=== PATIENT | male | born 1930 | race Caucasian/White ===

== ENCOUNTER → 2016-08-01 | Outpatient (CLI) | payer MEDICARE, OTHER | LOC: LAB.O 16:40 | PROVIDERS: ATTEND Family Medicine | DX: Z85.46 Personal history of malignant neoplasm of prostate (principal) ==

== ENCOUNTER → 2016-10-10 | Outpatient (CLI) | payer MEDICARE, OTHER | END | disposition home or self-care (01) | LOC: GMAB 16:31 | PROVIDERS: ATTEND Family Medicine | DX: R53.82 Chronic fatigue, unspecified (principal) ==

== ENCOUNTER → 2017-03-12 | Outpatient (CLI) | payer MEDICARE, OTHER | END | disposition home or self-care (01) | LOC: GMAB 10:17 | PROVIDERS: ATTEND Family Medicine | DX: Z12.5 Encounter for screening for malignant neoplasm of prostate (principal); E03.9 Hypothyroidism, unspecified | CPT/HCPCS: 84439; 84443; 84481; G0103 ==

== ENCOUNTER → 2017-09-29 | Outpatient (CLI) | payer MEDICARE, OTHER | LOC: GMAB 18:23 | PROVIDERS: ATTEND Family Medicine | DX: C61 Malignant neoplasm of prostate (principal) ==

== ENCOUNTER → 2017-10-01 | Outpatient (CLI) | payer MEDICARE, OTHER ==
--- NOTE | 2017-10-01 11:31 | MRI ---
EXAM DESCRIPTION: Lumbar Spine w/o Contrast : Magnetic Resonance Imaging. CLINICAL HISTORY: LOW BACK PAIN COMPARISON: MRI lumbar spine 07/03/2009. TECHNIQUE: Multiplanar, multiple standard sequences, non contrast MRI, lumbar spine. FINDINGS: L5-S1: Moderate disc space loss with bilateral Modic type II endplate reactive changes more severe on the left. Disc osteophyte complex with borderline left foraminal stenosis. Moderate right foraminal narrowing. Posterior midline disc osteophyte bulge 3 mm abutting the thecal sac with mild canal narrowing. Bilateral facet arthrosis. No significant change from the prior study. L4-5: Disc desiccation and moderate disc space loss. Anterior bulging and endplate ridging. Modic type I endplate reactive changes. Posterior left paracentral 5 mm disc osteophyte complex protrusion to the left of midline impressing the thecal sac and the descending left L5 nerve as it enters the lateral recess which is borderline stenotic. Mild bilateral facet arthrosis and mild ligament hypertrophy. Mild left foraminal stenosis and moderate right foraminal narrowing. Stable since the prior study. L3-4: Moderate disc space loss and disc desiccation. Anterior disc bulge and endplate ridging. Right side Modic type III endplate reactive changes and disc spur complex encroaching on the foramen which is stenotic. Mild to moderate left foraminal narrowing. Minimal ligament hypertrophy bilaterally and right facet arthrosis. Stable since the prior study. L2-3: Modic type II endplate reactive changes with multiple endplate Schmorl's nodes. Moderate disc space loss and desiccation. Anterior disc bulge and endplate ridging. Posterior broad-based disc bulge more to the left of midline. Hypertrophied ligaments and bilateral mild facet arthrosis. Mild canal stenosis. Moderate right foraminal narrowing and borderline left foraminal stenosis. Stable since the prior study. L1-2: Disc desiccation with disc space preserved. Bilateral flavum ligament hypertrophy. Facets are negative. Mild canal and bilateral foraminal narrowing. Stable. T12-L1: Moderate disc space loss with desiccation anterior bulging and endplate ridging. Conus terminates at L1. Trace retrolisthesis with posterior disc osteophyte complex abutting the cord. Modic type II endplate reactive changes more severe on the left with disc osteophyte complex encroaching on the foramen which is stenotic. Moderate right foraminal narrowing. Stable since the prior study. Left L2 L5 convex curvature. T12-L1 dextroscoliosis. Normal signal in the included cord with no compression. Paravertebral soft tissues show muscle atrophy.. Normal marrow signal in the remaining vertebral bodies and the posterior elements. Vertebral bodies are not compressed at any level. IMPRESSION: 1. Multiple levels of spondylosis, disc degeneration and disc space loss, endplate spurs, facet arthrosis and spurs, flavum ligament hypertrophy and canal and foraminal narrowing or stenosis. No significant change since the prior study. 2. Left side disc osteophyte complex at L5-S1 with borderline foraminal stenosis. Posterior midline disc bulge. 3. Posterior left paracentral disc osteophyte complex at L4-5 encroaching on the left thecal sac and the descending left L5 nerve and left subarticular recess. 4. L3-4 Right side advanced Modic type changes and spondylosis with right foraminal stenosis. 5. Multifactorial mild canal stenosis at L2-3 with moderate spondylosis. 6. Left side disc osteophyte complex at T12-L1 with left foraminal stenosis. Trace retrolisthesis. Posterior midline disc osteophyte complex abutting the cord. Electronically signed by: Ezequiel Mclean MD 10/01/2017 11:30 AM CDT
== END ==
LOC: MRI 08:00
PROVIDERS: ATTEND Physician Assistant
DX: M48.061 Spinal stenosis, lumbar region without neurogenic claudication (principal); M47.896 Other spondylosis, lumbar region; M51.36 Other intervertebral disc degeneration, lumbar region; M54.5 Low back pain

== ENCOUNTER 2017-12-28 18:42 | Observation (INO) | payer MEDICARE, OTHER ==
--- NOTE | 2017-12-28 19:28 | RAD ---
EXAM DESCRIPTION: Chest,1 View CLINICAL HISTORY: chest pain COMPARISON: None. FINDINGS: Cardiac silhouette is within normal limits. There is atelectasis and consolidation at each lung base. There is mild pulmonary edema. Prosthetic right shoulder appears intact. There is a small right pleural effusion. IMPRESSION: Bilateral consolidations. Electronically signed by: Ezequiel Rodgers 12/28/2017 7:26 PM CDT
[2017-12-28] MEDS ORDERED: IPRATROPIUM/ALBUTEROL 3 ML VIAL NEB ONE (19:37)
--- NOTE | 2017-12-28 20:16 | ED.PDOC ---
History of Present Illness - General Chief Complaint: Respiratory Problem Stated Complaint: short of breath Time Seen by Provider: 12/28/17 19:11 Source: patient Exam Limitations: no limitations - History of Present Illness Comments: Trinidad Coburn 87 y/o male stated that he has on and off productive cough for the last 4 months got worse the last 5 days and also with sob.No fever or chills. 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 Timing/Duration: other - see hpi Possible Cause: occasional episodes, unknown cause Worsening Factors: nothing Associated Symptoms: shortness of breath Respiratory Risk Factors: no cause identified Allergies/Adverse Reactions: Allergies Polyethylene Glycol [From MiraLax] Adverse Reaction (Verified 01/27/16 13:22) Rash Home Medications: Ambulatory Orders Clonazepam 1 mg PO DAILY 01/27/16 Duloxetine HCl [Cymbalta] 60 mg PO DAILY 01/27/16 Furosemide [Lasix] 40 mg PO DAILY 01/27/16 Levothyroxine Sodium [Synthroid] 0.05 mg PO DAILY 01/27/16 Pantoprazole Sodium 40 mg PO DAILY 01/27/16 Potassium Chloride 1 each PO DAILY 01/27/16 Tramadol HCl [Ultram] 50 mg PO QID PRN 01/27/16 Aripiprazole [Abilify] 12/28/17 Review of Systems - Review of Systems Constitutional: States: no symptoms reported EENTM: States: no symptoms reported Respiratory: States: see HPI Cardiology: States: no symptoms reported Gastrointestinal/Abdominal: States: no symptoms reported Genitourinary: States: no symptoms reported Musculoskeletal: States: no symptoms reported Skin: States: no symptoms reported Neurological: States: other - vertigo chronic Past Medical History (General) - Patient Medical History Hx Stroke: No Hx Congestive Heart Failure: No Hx Thyroid Disease: Yes Hx Diabetes: No Hx Gastroesophageal Reflux: Yes Hx Cancer: Yes - Prostate; skin Hx MRSA: No Hx Other PMH: Yes - Rheumatoid arthritis Surgical History: appendectomy, 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 Family Medical History - Family History Father Living Status: Hx Family Diabetes: Yes - mom Hx Family Cancer: Yes - brother prostate Hx Family;Other: Alzheimer's Physical Exam - Physical Exam General Appearance: Alert, Comfortable, No apparent distress Eye Exam: bilateral normal ENT Exam: normal ENT inspection, hearing grossly normal Neck: normal inspection, trachea midline Respiratory: chest non-tender, no respiratory distress, rales - bases Cardiovascular/Chest: normal peripheral pulses, regular rate, rhythm, no murmur Gastrointestinal/Abdominal: non tender, soft, no organomegaly Extremity: no calf tenderness, pedal edema - 1+, other - deformity finger r>l Neurologic: alert, oriented x 3 Skin Exam: normal color, warm/dry Lymphatic: no adenopathy Progress - Progress Progress: 12/28/17 22:38 Vital Signs - 8 hr 12/28/17 12/28/17 12/28/17 19:11 19:36 19:47 Temperature 97.1 F L Pulse Rate 71 Pulse Rate [ 76 68 Right] Respiratory 20 18 18 Rate Blood Pressure 137/70 144/67 [Left Arm] O2 Sat by Pulse 93 L 94 L 98 Oximetry 12/28/17 12/28/17 19:49 21:00 Temperature Pulse Rate Pulse Rate [ 76 75 Right] Respiratory 18 18 Rate Blood Pressure 147/66 135/66 [Left Arm] O2 Sat by Pulse 94 L 97 Oximetry - Results/Orders Results/Orders: Vital Signs - 8 hr 12/28/17 12/28/17 12/28/17 19:11 19:36 19:47 Temperature 97.1 F L Pulse Rate 71 Pulse Rate [ 76 68 Right] Respiratory 20 18 18 Rate Blood Pressure 137/70 144/67 [Left Arm] O2 Sat by Pulse 93 L 94 L 98 Oximetry 12/28/17 12/28/17 19:49 21:00 Temperature Pulse Rate Pulse Rate [ 76 75 Right] Respiratory 18 18 Rate Blood Pressure 147/66 135/66 [Left Arm] O2 Sat by Pulse 94 L 97 Oximetry 12/28/17 19:13 IV Care:Saline Lock per Protoc QSHIFT URINALYSIS Stat 12/28/17 19:15 EKG STAT EKG STAT Laboratory Results - last 24 hr 12/28/17 12/28/17 19:13 19:13 WBC 10.1 RBC 4.69 L Hgb 14.6 Hct 43.4 MCV 92.5 MCH 31.1 H MCHC 33.5 RDW 14.1 Plt Count 283 MPV 7.7 Absolute Neuts (auto) 6.70 Absolute Lymphs (auto) 2.00 Absolute Monos (auto) 1.10 H Absolute Eos (auto) 0.30 Absolute Basos (auto) 0.10 Neutrophils % 66.6 Lymphocytes % 19.6 L Monocytes % 10.5 H Eosinophils % 2.5 Basophils % 0.8 PT 10.2 INR 1.02 PTT (SP) 24.1 D-Dimer, Quantitative 2.17 H* Sodium 138 Potassium 3.9 Chloride 106 Carbon Dioxide 23 Anion Gap 12.9 BUN 16 Creatinine 1.10 BUN/Creatinine Ratio 14.5 Random Glucose 127 H Serum Osmolality 278.4 Calcium 9.1 Magnesium 2.1 Total Bilirubin 0.6 Direct Bilirubin < 0.1 Indirect Bilirubin 0.5 AST 28 ALT 22 Alkaline Phosphatase 65 Creatine Kinase 58 CK-MB (CK-2) 2.4 CK-MB (CK-2) % Not Reportable Troponin I 0.03 B-Natriuretic Peptide 303.0 H* Serum Total Protein 7.3 Albumin 3.9 - EKG/XRAY/CT EKG: Sinus, nonspecific ST T wave Chg Comments: HR-72 XRAY: facial bones - HR- CT Ordered: Yes - [id number] pe;diffuse pulmonary congestion Departure - Departure Clinical Impression: History of juvenile rheumatoid arthritis Pneumonia Qualifiers: Pneumonia type: due to unspecified organism Laterality: bilateral Lung location : lower lobe of lung Qualified Code(s): J18.1 - Lobar pneumonia, unspecified organism Time of Disposition: 23:01 Disposition: Admit Patient Condition: Fair Departure Forms: Patient Portal Self Enrollment Referrals: Chico Pino MD [Primary Care Provider] - 1-2 Weeks Home Medications: Ambulatory Orders Clonazepam 1 mg PO DAILY 01/27/16 Duloxetine HCl [Cymbalta] 60 mg PO DAILY 01/27/16 Furosemide [Lasix] 40 mg PO DAILY 01/27/16 Levothyroxine Sodium [Synthroid] 0.05 mg PO DAILY 01/27/16 Pantoprazole Sodium 40 mg PO DAILY 01/27/16 Potassium Chloride 1 each PO DAILY 01/27/16 Tramadol HCl [Ultram] 50 mg PO QID PRN 01/27/16 Aripiprazole [Abilify] 12/28/17 Decision To Admit - Decistion To Admit Decision to Admit Reason: Admit from ER Decision to Admit Date: 12/28/17 - D/W Kassidy [id number] Decision to Admit Time: 22:57
--- NOTE | 2017-12-28 22:32 | CT ---
EXAM: CT ANGIOGRAM OF THE CHEST USING INTRAVENOUS ADMINISTRATION OF NONIONIC IODINATED CONTRAST MATERIAL. CLINICAL INDICATION: Evidence of breath. Elevated d-dimer. COMPARISON: Today's chest radiograph. Chest CT of September 05, 2017. TECHNIQUE: Using helical technique, thin section axial images were performed through the chest after the uncomplicated intravenous administration of nonionic iodinated contrast material. Axially acquired data was then transferred to a dedicated CT workstation to facilitate parasagittal, coronal and volumetric 3-D reconstructions. Vice President Of [employer] volumetric 3-D reconstructions for this examination were permanently stored on the PACS system. FINDINGS: Mild to moderate atherosclerotic calcification of thoracic aorta without aneurysm or dissection. Great vessels the chest are normal. No pulmonary embolism. Greatest diameter of the ascending thoracic aorta equals 3.1 cm. No suspicious hilar, mediastinal or axillary lymphadenopathy. Cardiac size and contour are normal. No pericardial effusion. Partially visualized three-vessel coronary artery calcification. Fine detail is obscured by cardiac motion artifact. Suspect diffuse pulmonary congestion dependently in both lungs. No pleural effusions or pneumothorax. No regions of pleural calcification. Multilevel degenerative disease throughout the thoracic spine. IMPRESSION: 1. No pulmonary embolism. 2. Suspect diffuse dependent pulmonary congestion in both lungs. No pleural effusions or pneumothorax. 3. Atherosclerotic calcification of thoracic aorta without aneurysm or dissection. 4. Partially visualized coronary artery calcification. This exam was performed according to our departmental dose-optimization program, which includes automated exposure control, adjustment of the mA and/or kV according to patient size and/or use of iterative reconstruction technique. Electronically signed by: Raymundo Rai MD 12/28/2017 10:30 PM CDT
[2017-12-28] MEDS ORDERED: AZITHROMYCIN IV 500 MG in SODIUM CHLORIDE 0.9% 250ML 250 ML IVPB ONE (22:59)
[2017-12-28] MEDS ORDERED: cefTRIAXone SODIUM 2 GM in SODIUM CHL 0.9% 100ML MINI-BAG 100 ML IVPB ONE (22:59)
[2017-12-28] MEDS ORDERED: methylPREDNISolone SODIUM SUC 125 MG/2 ML VIAL IV ONE (23:00)
[2017-12-28] MEDS ORDERED: SODIUM CHLORIDE 0.9% 250ML 250 ML ONE (23:15)
[2017-12-28] MEDS ORDERED: SODIUM CHL 0.9% 100ML MINI-BAG 100 ML IVPB ONE (23:15)
[2017-12-28] MEDS ORDERED: AZITHROMYCIN IV 500 MG VIAL IVPB ONE (23:15)
--- NOTE | 2017-12-28 23:59 | HP ---
SUPERVISING PHYSICIAN: Rush Barahona M.D. HISTORY OF PRESENT ILLNESS: Mr. Coburn is an 87 year-old male patient that presented to the Emergency Room late last night with a complaint of sudden onset of shortness of breath. He noted that he has been having a cough which has been chronic over the last 4 months which is productive at times. He noted that yesterday afternoon he was walking in his house and had an episode of significant shortness of breath. He normally uses an inhaler but he has not had any refills since Dr. Pino, his primary care provider, had retired. On presentation to the Emergency Department, vital signs showed he was afebrile with temperature 97.1, satting 90% on room air. He was obviously having some shortness of breath with respirations 20 to 22. Laboratory studies showed that his white count was showing to normal at 10,100 without a left shift. Coagulation studies showed he had an elevated D-dimer of 2.17. Chemistries were unremarkable except for an elevated BNP of 303. Given the elevation of his D-dimer and onset of symptoms, he had a chest CTA to rule out pulmonary embolism and per radiology interpretation there was noted no pulmonary embolism. There was noted suspected diffuse dependent pulmonary congestion in both lungs. In the E. R., he was given a dose of Solu-Medrol 125 and started on antibiotics including Rocephin and azithromycin. He is now going to be placed in observation for concerns for acute exacerbation of congestive heart failure and chronic obstructive pulmonary disease with concerns for possible community acquired pneumonia. He was placed in observation for further evaluation and workup of shortness of breath and concerns for possible congestive heart failure given his elevated BNP and concerns for possible pneumonia, community acquired. PAST MEDICAL HISTORY: 1. Gastroesophageal reflux disease. 2. Tension headaches. 3. Prostate cancer. 4. Anxiety and mild depression. 5. Rheumatoid arthritis not on any chronic treatment. 6. History of rheumatic fever as a child. 7. Hypothyroidism on supplementation. 8. Chronic constipation. 9. Chronic vertigo. 10. Chronic cough with chronic bronchitis. PAST SURGICAL HISTORY: 1. Back injections. 2. Implanted event clinical research monitor. HOME MEDICATIONS: 1. Metoprolol 25 mg daily. 2. Abilify 5 mg daily. 3. Potassium chloride 20 mEq daily. 4. Linzess 290 mcg daily. 5. Clonazepam 1 mg daily. 6. Pantoprazole 40 mg daily. 7. Cymbalta 60 mg daily. 8. Synthroid 0.05 mg daily. 9. Lasix 40 mg daily. ALLERGIES: NO KNOWN DRUG ALLERGIES. FAMILY HISTORY: Positive for carcinoma of the prostate in a brother as well as heart failure. SOCIAL HISTORY: The patient has never smoked. 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 He lives in [place] and is . He denies any alcohol or illicit drug use. REVIEW OF SYSTEMS: CONSTITUTIONAL: No reported fever or chills. HEENT: No nasal congestion, ear aches, sore throat. RESPIRATORY: As noted in History of Present Illness, chronic cough, sudden onset of shortness of breath. CARDIOVASCULAR: No reported chest pains or syncopal episodes or palpitations. GASTROINTESTINAL: Denies any nausea or vomiting, diarrhea. Does have chronic constipation on Linzess. Denies any abdominal pains. GENITOURINARY: History of prostate cancer but denies any dysuria, hematuria, polyuria or other urinary symptoms. NEUROLOGIC: Notes he has chronic vertigo that has worsened with dehydration but denies any worsening of symptoms currently. No ataxia. No seizure activities. PHYSICAL EXAMINATION: VITAL SIGNS: Temperature 97.1, pulse 76, blood pressure 137/70, respirations showing 20 to 24 with O2 saturations 98% on room air. Admission weight 71.7 kg. GENERAL: On admission to the Medical/Surgical floor, the patient appears comfortable, resting, sitting on the side of the bed and appears to be in no acute distress with no complaints at time of assessment. HEENT: Tympanic membranes were clear bilaterally. Oropharynx was pink and moist without any lesions. NECK: Supple, non-tender with full range of motion. No jugular venous distention. CHEST: Lungs were clear with some faint rales noted to the bilateral bases. No wheezing or rhonchi. CARDIOVASCULAR: Regular rate and rhythm without appreciable murmurs, gallops, or rubs. ABDOMEN: Obese but soft, non-tender. Positive bowel sounds. EXTREMITIES: Did show 1+ edema bilaterally. There is notable deformities to the fingers on both hands, but right greater than left secondary to rheumatoid arthritis. NEUROLOGIC: He is alert and oriented times three. Facial features are symmetrical. Extraocular movements are within normal limits. There was no notable nystagmus. Cranial nerves II-XII are grossly intact. LABORATORY: CBC initially showed a white count of 10,100 with hemoglobin 14.6, hematocrit 43.4, platelet count 283,000. Differential showed to be without a left shift. Coagulation studies showed an elevated D-dimer at 2.7 with PTT of 24.1, PT of 10.2. Initial chemistries all showed to be within normal limits except for a slightly elevated BNP of 303. Cardiac enzymes showed troponin 0.03. Urinalysis showed to be within normal limits. MICROBIOLOGY: Sputum culture is pending. Blood culture is pending. RADIOLOGY: Chest x-ray initially in the E. R. per radiology interpretation of single view chest showed cardiac silhouette was within normal limits. There was note of mild pulmonary edema with notable bilateral consolidations. This was followed-up with a chest thoracic CTA and per radiology interpretation showed no evidence of pulmonary embolism on current study with suspected diffuse dependent pulmonary congestion in both lungs, but no pleural effusions or pneumothoraxes. EKG 12-leas in the E. R. showed sinus rhythm with nonspecific ST wave changes. ASSESSMENT: 1. Acute dyspnea with concerns for developing community acquired pneumonia with history of chronic bronchitis with current pulmonary embolism studies showing without any evidence of acute pulmonary embolism. 2. Acute on chronic congestive heart failure, although no formal diagnosis of congestive heart failure with a noted elevated BNP on admission with last echocardiogram noted in 2011 with a mild left ventricular hypertrophy and an ejection fraction of 55% with radiographic studies indicating bilateral pulmonary congestion. 3. Gastroesophageal reflux disease. 4. History of tension headaches. 5. History of prostate cancer. 6. Hypothyroidism on supplementation. 7. Depression on Abilify. 8. Rheumatoid arthritis. 9. History of rheumatic fever as a child. 10. Chronic constipation on Linzess. PLAN: The patient was given antibiotics initially in the E. R. with concerns for pneumonia based off initial findings on chest x-ray. Will follow this up with continued antibiotics with Rocephin and azithromycin. He will also be given Lasix 40 mg IV with concerns for exacerbation of congestive heart failure. He will be on DVT prophylaxis as per protocol. Will resume his home medications as those are updated and verified. Will go ahead and start him on aggressive pulmonary hygiene with DuoNeb treatments and p.r.n. Albuterol as needed. he will be on fluid restriction of less than 1800 mL per 24 hours. Will closely monitor his I's and O's and repeat labs in the morning with anticipation of discharging to followup in the outpatient setting. Until then continue to monitor and treat appropriately. #[id number] [facility]
[2017-12-29] MEDS ORDERED: ALBUTEROL SULFATE 2.5 MG/3 ML VIAL NEB PRN (00:20)
[2017-12-29] MEDS ORDERED: IV SET AND CAP CHANGE INJ INJ SCH (00:30)
[2017-12-29] MEDS: SODIUM CHLORIDE 0.9% (FLUSH) 10 ML SYG IV PRN ×5 (05:57→23:55)
[2017-12-29] MEDS: methylPREDNISolone SODIUM SUC 125 MG/2 ML VIAL IV SCH ×4 (05:58→23:57)
[2017-12-29] MEDS ORDERED: PANTOPRAZOLE SODIUM IV 40 MG VIAL IV SCH (06:30)
--- NOTE | 2017-12-29 07:00 | RAD ---
Chest single view on 12/29/2017 CLINICAL INDICATION: Pneumonia COMPARISON: 12/28/2017 FINDINGS: Implantable cardiac recorder device overlies the left chest. The patient is status post a right shoulder arthroplasty. A few overlying wires are noted. There is minimal basilar atelectasis or scarring. Mild chronic interstitial changes are noted. The lungs are otherwise clear. Vascular calcification is noted in the aorta. Cardiac, hilar and mediastinal contours are within normal limits. IMPRESSION: No acute disease. Electronically signed by: Griffin Hylton 12/29/2017 6:58 AM CDT
[2017-12-29] MEDS: IPRATROPIUM/ALBUTEROL 3 ML VIAL INH SCH ×4 (08:51→20:46)
[2017-12-29] MEDS: SODIUM CHLORIDE 0.9% (FLUSH) 10 ML SYG IV SCH ×2 (08:56→20:38)
[2017-12-29] MEDS ORDERED: FUROSEMIDE INJ 40 MG/4 ML VIAL IV ONE (10:50)
[2017-12-29] MEDS ORDERED: NON-FORMULARY MEDICATION 1 EA MIS (Linaclotide [Linzess] 290 MCG) PO SCH (16:30)
[2017-12-29] MEDS: ARIPiprazole 5 MG TAB PO SCH (17:23)
[2017-12-29] MEDS: METOPROLOL SUCCINATE XL 25 MG TAB PO SCH (17:24)
[2017-12-29] MEDS ORDERED: SODIUM CHLORIDE 0.9% 250ML 250 ML ONE (19:42)
[2017-12-29] MEDS ORDERED: SODIUM CHL 0.9% 50ML MIN-BAG+ 50 ML IVPB ONE (19:43)
[2017-12-29] MEDS ORDERED: cefTRIAXone SODIUM 1 GM VIAL ONE (19:43)
[2017-12-29] MEDS ORDERED: AZITHROMYCIN IV 500 MG VIAL IVPB ONE (19:43)
[2017-12-29] MEDS ORDERED: ENOXAPARIN SODIUM 40 MG/0.4 ML SYG SUBCU SCH (21:00)
[2017-12-29] MEDS ORDERED: DULoxetine HCL 30 MG CAP PO SCH (21:00)
[2017-12-29] MEDS ORDERED: cefTRIAXone SODIUM 1 GM in SODIUM CHL 0.9% 50ML MIN-BAG+ 50 ML IVPB SCH (21:00)
[2017-12-29] MEDS ORDERED: AZITHROMYCIN IV 500 MG in SODIUM CHLORIDE 0.9% 250ML 250 ML IVPB SCH (22:00)
[2017-12-30] MEDS ORDERED: PANTOPRAZOLE SODIUM IV 40 MG VIAL ONE (05:41)
[2017-12-30] MEDS: methylPREDNISolone SODIUM SUC 125 MG/2 ML VIAL IV SCH (05:52)
[2017-12-30] MEDS: SODIUM CHLORIDE 0.9% (FLUSH) 10 ML SYG IV PRN (05:52)
[2017-12-30] MEDS ORDERED: LEVOTHYROXINE SODIUM 0.025 MG TAB PO SCH (06:30)
[2017-12-30] MEDS ORDERED: LINZESS 290 MCG PO SCH (07:00)
[2017-12-30] MEDS: IPRATROPIUM/ALBUTEROL 3 ML VIAL INH SCH (08:11)
[2017-12-30] MEDS ORDERED: PANTOPRAZOLE SODIUM TAB 40 MG PO SCH (09:00)
[2017-12-30] MEDS ORDERED: FUROSEMIDE 40 MG TAB PO SCH (09:00)
[2017-12-30] MEDS ORDERED: POTASSIUM CHLORIDE 10 MEQ TAB PO SCH (09:00)
[2017-12-30] MEDS: METOPROLOL SUCCINATE XL 25 MG TAB PO SCH (09:12)
[2017-12-30] MEDS: ARIPiprazole 5 MG TAB PO SCH (09:12)
[2017-12-30] MEDS: SODIUM CHLORIDE 0.9% (FLUSH) 10 ML SYG IV SCH (09:12)
[2017-12-30 11:31] VITALS: BP 125/69; TEMP 97.7; O2SAT 95
--- NOTE | 2018-01-05 10:22 | DS ---
SUPERVISING PHYSICIAN: Jarrett Barahona MD ADMISSION DIAGNOSIS; 1. Acute dyspnea with concerns for developing community acquired pneumonia with history of chronic bronchitis with pulmonary embolism studies by CTA without any evidence of acute pulmonary embolism. 2. Acute on chronic congestive heart failure with no formal diagnosis of congestive heart failure, but with a noted elevated BNP on admission with last echocardiogram in 2012 with a mild left ventricular hypertrophy and an ejection fraction of 55% with radiographic studies indicating bilateral pulmonary congestion. 3. Gastroesophageal reflux disease. 4. History of tension headaches. 5. History of prostate cancer. 6. Hypothyroidism on supplementation. 7. Depression on Abilify. 8. Rheumatoid arthritis. 9. History of rheumatic fever as a child. 10. Chronic constipation on Linzess. DISCHARGE DIAGNOSIS: 1. Exacerbation of chronic bronchitis, improving with antibiotics and aggressive pulmonary hygiene without any signs of pneumonia at discharge. 2. Acute on chronic congestive heart failure with an elevated BNP on admission , exacerbated by #1 with echocardiogram in 2012 showing a mild left ventricular hypertrophy and an ejection fraction of 55%. Type is likely systolic etiology, uncertain, but more likely secondary to left ventricular hypertrophy. 3. Gastroesophageal reflux disease. 4. History of tension headaches. 5. History of prostate cancer. 6. Hypothyroidism on supplementation. 7. Depression on Abilify. 8. Rheumatoid arthritis. 9. History of rheumatic fever as a child. 10. Chronic constipation on Linzess. REASON FOR HOSPITALIZATION: Mr. Coburn is an 87-year-old male patient that presented to the Emergency Room on 12/28/17 with a complaint of sudden onset of shortness of breath. He first noted that he has been having a cough which has been chronic over the last 4 months which is productive at times. He noted that the afternoon before admission, he was walking in his house and had an episode of significant shortness of breath. He normally uses an inhaler but he has not had any refills since Dr. Pino, his primary care provider, had retired. On presentation to the Emergency Department, vital signs showed he was afebrile with temperature 97.1, satting 90% on room air. He was obviously having some shortness of breath with respirations 20 to 22. He was given breathing treatments with improvement of his symptoms. Laboratory studies showed that his white count was showing to normal without a left shift. D-dimer was elevated at 2.17. Chemistries were unremarkable except for an elevated BNP of 303. Given the significant elevation of his D-dimer and sudden onset of dyspnea, he had a chest CTA to rule out pulmonary embolism and per radiology interpretation there was noted no pulmonary embolism. There was noted suspected diffuse dependent pulmonary edema in both lungs. In the ER, he was given a dose of Solu-Medrol 125 mg and started on antibiotics including Rocephin and azithromycin. He does have a history of chronic bronchitis and there was concern for possible pneumonia. He was placed in observation for concerns for acute exacerbation of congestive heart failure as well as chronic obstructive pulmonary disease. He was placed in observation for further evaluation and workup. He was admitted in stable condition. LABORATORY: White count on admission and discharge was within normal limits. At discharge, it was 7,900. Hemoglobin and hematocrit were stable at 14.1 and 42.1 respectively. Platelet count 286,000. Differential initially admission was without a left shift. However, after Solu-Medrol administration, he developed a left shift prior to discharge. Coagulation studies showed normal PT , PT-T. D-dimer was elevated at 2.17. Chemistries showed both on admission and at discharge normal electrolytes. BUN 16, creatinine 0.99. Liver functions were all within normal limits. Troponin 0.03 on admission and BNP was elevated at 303. Urinalysis was within normal limits. MICROBIOLOGY: Blood cultures remained negative after 5 days. No sputum culture was submitted. RADIOLOGY: In the Emergency Room, he had a chest x-ray and per radiologic interpretation there was note of bilateral consolidations with some mile pulmonary edema. This was followed up with a CT of the chest and per radiologic interpretation, was no note of pulmonary embolism and there was suspected diffuse dependent pulmonary congestion of both lungs with no mention of consolidations. Please see that report for full details. EKG: EKG on admission showed a normal sinus rhythm with nonspecific ST changes and no acute T-wave inversion or ST elevation indicating acute myocardial infarction at time of admission. HOSPITAL COURSE: Mr. Coburn was admitted on 12/29/17 as noted above for exacerbation of chronic obstructive pulmonary disease along with chronic bronchitis with concerns for community acquired pneumonia developing early stages. He was started on Solu-Medrol initially in the Emergency Room and given aggressive pulmonary hygiene with breathing treatments as well as initiated on antibiotics with Rocephin and azithromycin. He has no recurrence of shortness of breath while in the hospital. He remained afebrile. He was satting 95% on room air and was felt that he had clinically stabilized and was able to transition to outpatient management. Therefore, he was to be discharged. DISCHARGE PHYSICAL ASSESSMENT: VITAL SIGNS: Temperature 97.7. Pulse 97. Blood pressure 125/69. Respirations 18. Saturation 95% on room air. GENERAL: The patient was in no acute distress, resting comfortably, alert. CHEST: Lungs clear to auscultation, just slightly diminished towards the bases. No wheezes, rales or rhonchi noted. HEART: Regular rate and rhythm. ABDOMEN: Obese, but soft, nontender. Positive bowel sounds. EXTREMITIES: No cyanosis, clubbing or edema. NEUROLOGIC: He is alert and oriented times 3. PLAN: MR. Coburn was discharged on 12/30/17 with instructions to followup with Dr. Barahona on 01/13/18 at 13:30. He was to resume his home medications as previously instructed prior to admission. He was to take new prescriptions as directed. He was encouraged to return to the hospital or call Dr. Barahona's office should he have any concerning symptoms. He was to resume his usual diet as tolerated. Activity to ambulate with a walker as tolerated. He was encouraged to increase activities. NEW PRESCRIPTIONS AT DISCHARGE: 1. Albuterol inhaler 1 to 2 puffs every 4 hours as needed. 2. Cefdinir 300 mg twice daily, #16. 3. Mucinex 600 mg twice daily, #14. Condition at discharge was stable and improved. #[id number] [facility]
== END 2017-12-30 11:45 | disposition home or self-care (01) ==
LOC: ER 18:42 → OBSVTOIN 23:58 → MS 23:58 → INTOOBSV 23:58
PROVIDERS: ADMIT Nurse Practitioner Acute Care; ATTEND Nurse Practitioner Family
DX: J44.1 Chronic obstructive pulmonary disease with (acute) exacerbation (principal); I50.9 Heart failure, unspecified; K21.9 Gastro-esophageal reflux disease without esophagitis; G44.209 Tension-type headache, unspecified, not intractable; E03.9 Hypothyroidism, unspecified; F32.9 Major depressive disorder, single episode, unspecified; M06.9 Rheumatoid arthritis, unspecified; K59.09 Other constipation; I70.0 Atherosclerosis of aorta; Z79.899 Other long term (current) drug therapy; Z85.46 Personal history of malignant neoplasm of prostate; Z95.818 Presence of other cardiac implants and grafts; Z82.49 Family history of ischemic heart disease and other diseases of the circulatory system
CPT/HCPCS: 96366; 96372; 96375 ×2; 96376 ×2; J0696 ×2; J1940; J2930 ×6; J7050 ×4; J1650; J0456 ×2; J7620 ×6; 85379; 80053; 36415 ×2; 82550; 80048; 82553; 85025 ×2; 85730; 85610; 84484; 81001; 80076; 87040 ×2; 83880; 71045 ×2; 71275; 94640 ×7; 94667; 94760 ×8; 94668 ×3; 99285; 93005; G0378; 96365; 96367

== ENCOUNTER 2018-01-20 21:26 | Emergency (ER) | payer MEDICARE, OTHER ==
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
--- NOTE | 2018-01-20 22:08 | RAD ---
EXAM: Chest,1 View CLINICAL INDICATION: 87-year-old male with shortness of breath. TECHNIQUE: Single view, AP portable chest was obtained. COMPARISON: Single view chest 12/29/2017. FINDINGS: Stable cardiac and mediastinal silhouette. Heart size is normal. Tortuous atherosclerotic thoracic aorta. Diffuse interstitial and airspace opacification raising the concern for pulmonary vascular congestion, edema. No gross pneumothoraces or large pleural effusion, however trace pleural effusion cannot be excluded. The possibility of infectious process may be considered in the differential. The visualized bones reveal diffuse demineralization, degenerative change and RIGHT shoulder arthroplasty device. IMPRESSION: Diffuse interstitial and airspace opacification raising the concern for pulmonary vascular congestion and edema. Electronically signed by: Jasmin Fleming MD 01/20/2018 10:07 PM CDT
[2018-01-20] MEDS: FUROSEMIDE INJ 40 MG/4 ML VIAL IV ONE (22:30)
[2018-01-20 23:16] VITALS: TEMP 98.1; O2SAT 100
[2018-01-20 23:40] VITALS: BP 122/64
== END 2018-01-20 23:30 | disposition short-term general hospital (02) ==
LOC: ER 21:26
DX: T59.811A Toxic effect of smoke, accidental (unintentional), initial encounter (principal); J68.0 Bronchitis and pneumonitis due to chemicals, gases, fumes and vapors; R09.02 Hypoxemia; E07.9 Disorder of thyroid, unspecified; I50.9 Heart failure, unspecified; K21.9 Gastro-esophageal reflux disease without esophagitis; Z85.46 Personal history of malignant neoplasm of prostate; Z79.899 Other long term (current) drug therapy; Z88.5 Allergy status to narcotic agent
CPT/HCPCS: 36415; 36600; 71045; 80053; 81001; 82803; 82805; 83605; 85025; J1940

== ENCOUNTER → 2018-02-03 | Outpatient (CLI) | payer MEDICARE, OTHER ==
[~2018-02-03] MED LIST: ALBUTEROL SULFATE 2.5 MG/3 ML VIAL NEB ONE
== END ==
LOC: RESP 11:40
PROVIDERS: ATTEND Family Medicine
DX: J70.5 Respiratory conditions due to smoke inhalation (principal); J44.1 Chronic obstructive pulmonary disease with (acute) exacerbation
CPT/HCPCS: 94060; J7611

== ENCOUNTER → 2018-02-26 | Outpatient (CLI) | payer MEDICARE, OTHER | LOC: GMAE 14:25 | PROVIDERS: ATTEND Family Medicine | DX: E03.9 Hypothyroidism, unspecified (principal); C61 Malignant neoplasm of prostate ==

== ENCOUNTER 2018-06-15 10:14 | Inpatient (IN) | payer MEDICARE, OTHER ==
--- NOTE | 2018-06-15 11:14 | ED.PDOC ---
History of Present Illness - General Chief Complaint: Behavioral / Psych Stated Complaint: hallucinations Time Seen by Provider: 06/15/18 10:45 Source: patient Exam Limitations: no limitations - History of Present Illness Initial Comments: Trinidad Coburn 87 y/o male brought by after she noted for the last 3 days that he had been seeing cobwebs at home usually not there,claiming that house is not theirs and had been living on it for 62 years;also mentioned he sees cows in their pasture but they dont have one;picking stuff on the floor nothing really there;Patient was asked if he was doing it he stated that tricked him coming to hospital.Denies pain anywhere,no cills ,no fever.No N/V/D.No history of head injurie.Had cardiac rehabilitation program director recently placed by his contracting analyst. stated no violent behavior. Timing/Duration: intermittent, other - 3 days Severity: moderate Improving Factors: nothing Worsening Factors: nothing Associated Symptoms: other - see hpi Allergies/Adverse Reactions: Allergies Oxycodone [From Oxycontin] Adverse Reaction (Verified 06/15/18 10:40) Other confusion Home Medications: Ambulatory Orders Clonazepam 1 mg PO DAILY 01/27/16 Duloxetine HCl [Cymbalta] 60 mg PO BEDTIME 01/27/16 Furosemide [Lasix] 40 mg PO DAILY 01/27/16 Levothyroxine Sodium [Synthroid] 0.05 mg PO DAILY 01/27/16 Pantoprazole Sodium 40 mg PO DAILY 01/27/16 Potassium Chloride 10 meq PO DAILY 01/27/16 Aripiprazole [Abilify] 5 mg PO DAILY 12/28/17 Linaclotide [Linzess] 290 mcg PO 0700 12/29/17 Metoprolol Succinate [Metoprolol Succinate ER] 50 mg PO DAILY 12/29/17 Apixaban [Eliquis] 2.5 mg PO DAILY 06/15/18 Tramadol HCl [Ultram] 50 mg PO Q6H PRN 06/15/18 Review of Systems - Review of Systems Constitutional: States: no symptoms reported EENTM: States: no symptoms reported Respiratory: States: no symptoms reported Cardiology: States: no symptoms reported Gastrointestinal/Abdominal: States: no symptoms reported Genitourinary: States: no symptoms reported Musculoskeletal: States: no symptoms reported Neurological: States: see HPI Endocrine: States: no symptoms reported All other Systems: Reviewed and Negative, No Change from Baseline Past Medical History (General) - Patient Medical History Hx Seizures: No Hx Stroke: No Hx Asthma: No Hx of COPD: No Hx Cardiac Disorders: Yes - atrial fibriallation Hx Congestive Heart Failure: Yes Hx Pacemaker: No Hx Hypertension: No Hx Thyroid Disease: Yes Hx Diabetes: No Hx Gastroesophageal Reflux: Yes Hx Cancer: Yes - prostate Hx MRSA: No Hx Other PMH: Yes - Rheumatoid Arthritis;Rheumatic Fever-childhood Surgical History: appendectomy, tonsillectomy, other - prostate surgery;right hip,shoulder - Vaccination History Hx Tetanus, Diphtheria Vaccination: - 01/27/2016 Hx Influenza Vaccination: No Hx Pneumococcal Vaccination: No - Social History Hx Tobacco Use: No Hx Alcohol Use: No Hx Substance Use: No Hx Physical Abuse: No Hx Emotional Abuse: No Family Medical History - Family History Father Living Status: Hx Cardiac Disease: Yes - brother Hx Family Diabetes: Yes - mom Hx Family Cancer: Yes - brother prostate Hx Family;Other: Alzheimer's Physical Exam - Physical Exam General Appearance: Alert, Comfortable, No apparent distress Eye Exam: bilateral normal Ears, Nose, Throat: hearing grossly normal, normal ENT inspection, normal pharynx Neck: supple, normal inspection Respiratory: chest non-tender, no respiratory distress, rales - base Cardiovascular/Chest: normal peripheral pulses, regular rate, rhythm, no murmur Peripheral Pulses: radial,right: 2+, radial,left: 2+ Gastrointestinal/Abdominal: non tender, soft, no organomegaly Back Exam: no CVA tenderness, no vertebral tenderness Extremity: pedal edema, other - deformities finger -RA Neurologic: alert, oriented x 3 Skin Exam: normal color, warm/dry Lymphatic: no adenopathy Progress - Progress Progress: 06/15/18 12:30 Vital Signs - 8 hr 06/15/18 06/15/18 06/15/18 10:25 10:28 11:00 Temperature 96.0 F L Pulse Rate [ 67 68 left brachial] Respiratory 20 16 16 Rate Blood Pressure 117/58 114/45 [left brachial] O2 Sat by Pulse 92 L 95 Oximetry - Results/Orders Results/Orders: 06/15/18 11:19 IV Care:Saline Lock per Protoc QSHIFT 06/15/18 11:25 RPR Urgent 06/15/18 12:15 EKG STAT Laboratory Results - last 24 hr 06/15/18 06/15/18 06/15/18 11:02 11:25 11:25 WBC 10.5 RBC 4.06 L Hgb 12.3 L Hct 36.6 L MCV 90.1 MCH 30.3 MCHC 33.6 RDW 13.5 Plt Count 320 MPV 7.9 Absolute Neuts (auto) 7.70 H Absolute Lymphs (auto) 1.50 Absolute Monos (auto) 1.10 H Absolute Eos (auto) 0.10 Absolute Basos (auto) 0.10 Neutrophils % 73.5 Lymphocytes % 14.6 L Monocytes % 10.7 H Eosinophils % 0.6 L Basophils % 0.6 PT 10.5 INR 1.05 PTT (SP) 24.8 Sodium 138 Potassium 4.7 Chloride 105 Carbon Dioxide 21 Anion Gap 16.7 BUN 24 H Creatinine 1.42 H BUN/Creatinine Ratio 16.9 Random Glucose 135 H Serum Osmolality 281.8 Lactic Acid 2.2 Calcium 8.8 Magnesium 2.4 Total Bilirubin 0.6 Direct Bilirubin 0.1 Indirect Bilirubin 0.5 AST 45 H ALT 42 Alkaline Phosphatase 61 Creatine Kinase 50 CK-MB (CK-2) 2.0 CK-MB (CK-2) % Not Reportable Troponin I 0.04 B-Natriuretic Peptide 1140.0 H* Serum Total Protein 6.7 Albumin 3.4 TSH 7.11 H Urine Color Yellow Urine Appearance Clear Urine pH 5.5 Ur Specific [place] 1.020 Urine Protein 100 H Urine Glucose (UA) Negative Urine Ketones Negative Urine Blood Negative Urine Nitrite Negative Urine Bilirubin Negative Urine Urobilinogen 0.2 Ur Leukocyte Esterase Negative Urine RBC 0 Urine WBC 0 Ur Epithelial Cells 0 Urine Bacteria 0 - EKG/XRAY/CT EKG: Sinus, LVH, nonspecific ST T wave Chg Comments: HR-63 XRAY: chest - pulmonary vascular congestion,cardiomegaly Departure - Departure Clinical Impression: Hallucination CHF exacerbation Qualifiers: Heart failure type: unspecified Qualified Code(s): I50.9 - Heart failure, unspecified Renal failure, unspecified Qualifiers: Renal failure chronicity: unspecified chronicity Qualified Code(s): N19 - Unspecified kidney failure Disposition: Discharge to Home or Self Care Condition: Fair Departure Forms: ED Discharge - Pt. Copy, Patient Portal Self Enrollment Instructions: DI for Psychosis Referrals: HILDA LEIGH MD [Primary Care Provider] - 1-2 Weeks Home Medications: Ambulatory Orders Clonazepam 1 mg PO DAILY 01/27/16 Duloxetine HCl [Cymbalta] 60 mg PO BEDTIME 01/27/16 Furosemide [Lasix] 40 mg PO DAILY 01/27/16 Levothyroxine Sodium [Synthroid] 0.05 mg PO DAILY 01/27/16 Pantoprazole Sodium 40 mg PO DAILY 01/27/16 Potassium Chloride 10 meq PO DAILY 01/27/16 Aripiprazole [Abilify] 5 mg PO DAILY 12/28/17 Linaclotide [Linzess] 290 mcg PO 0700 12/29/17 Metoprolol Succinate [Metoprolol Succinate ER] 50 mg PO DAILY 12/29/17 Apixaban [Eliquis] 2.5 mg PO DAILY 06/15/18 Tramadol HCl [Ultram] 50 mg PO Q6H PRN 06/15/18 Decision To Admit - Decistion To Admit Decision to Admit Reason: Admit from ER Decision to Admit Date: 06/15/18 - D/W Laith Fox-ANP/Hospitalist Decision to Admit Time: 12:46
[2018-06-15] MEDS ORDERED: SODIUM CHLORIDE 0.9% 500ML 500 ML IVS ONE (11:21)
--- NOTE | 2018-06-15 11:49 | RAD ---
EXAM DESCRIPTION: Chest,1 View CLINICAL HISTORY: 87 years Male, cough COMPARISON: Radiograph of the chest dated 01/20/2018. TECHNIQUE: AP radiograph of the chest was obtained. FINDINGS: Trachea is midline. The cardiac silhouette is enlarged in size. Diffuse pulmonary vascular congestion is noted. Airspace opacities throughout both lungs most likely represent pulmonary edema.No evidence of pleural effusions. IMPRESSION: Enlarged cardiac silhouette with pulmonary vascular congestion and pulmonary edema most likely represent changes of congestive heart failure. Electronically signed by: Keisha Galo MD 06/15/2018 11:46 AM [facility]
--- NOTE | 2018-06-15 11:56 | CT ---
EXAM DESCRIPTION: CT head without contrast CLINICAL HISTORY: Hallucination. Altered mental status COMPARISON: 03/29/2009 TECHNIQUE: Noncontrast spiral CT of the brain. This exam was performed according to our departmental dose-optimization program, which includes automated exposure control, adjustment of the mA and/or kV according to patient size and/or use of iterative reconstruction technique FINDINGS: Severe white matter disease with decreased density throughout the deep and periventricular white matter bilateral cerebral hemispheres most significantly parietal and frontal. Interval increase in the white matter disease compared to the previous study. Nonspecific finding likely chronic microvascular ischemia. 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 Cerebral volume loss with prominence of cortical sulci and ventricular system. Atherosclerotic vascular calcifications in the vertebrobasilar and cavernous carotid arteries No intracranial hemorrhage or mass lesion. No calvarial or skullbase fracture. No fluid in the paranasal sinuses or mastoid air cells IMPRESSION: Severe white matter disease, nonspecific likely chronic microvascular ischemia CT is insensitive for early evaluation of acute stroke. If there is clinical concern for acute ischemia, an MRI may be considered. Electronically signed by: Norris Bosch MD 06/15/2018 11:53 AM [facility]
[2018-06-15] MEDS ORDERED: BUMETANIDE 0.25 MG/ML VIAL IV ONE (12:31)
--- NOTE | 2018-06-15 13:25 | HP ---
SUPERVISING PHYSICIAN: Rush Barahona M.D. CHIEF COMPLAINT: Hallucinations. HISTORY OF PRESENT ILLNESS: Trinidad Coburn is an 87 year-old male patient that was brought to the Emergency Room by his . He noted that over the last several days he had been having some visual hallucinations, reportedly had been seeing cobwebs and also some confusion claiming that his house that they were living in was not his, that they had lived in well over 67 years. There was also mention that he had seen cows in the pasture when there were none and he was picking up stuff off the floor that really was not there. On initial presentation to the Emergency Room, the patient was asked if he was doing what he stated and he noted that his had tricked him into coming to the hospital. He denied any pains, chills, fevers, nausea, vomiting or diarrhea. He has no history of head injuries. He does have a significant cardiac history and has an implanted hazardous substances engineer, and was recently seen by Dr. Smith, his take out waiter, on 06/09/18 due to some shortness of breath and implanted loop recorded had noted that he had been having some paroxysmal atrial fibrillation with high ventricular response rates. He had been having some syncopal spells in the last several months. Workup at that time showed that he had no significant acute findings other than the loop recorder that reported paroxysmal atrial fibrillation. He was started on new medications that included Eliquis 2.5 mg twice daily along with Metoprolol succinate 50 mg every day. He had an echocardiogram that was reviewed that was done in 2017 revealed a diastolic dysfunction with an ejection fraction of 55%. Workup in the E. R. showed his laboratories were fairly unremarkable except he did have an early left shift noted on his differential but white count was 10,500. H&H was showing to be 12.3 and 36.6. Coagulation studies were unremarkable. Chemistries did show elevation of his BUN at 24 and creatinine 1.42, otherwise sodium was normal, calcium was normal, lactic acid was within normal limits. Liver functions did show slight elevation of his AST at 45, but all others were within normal limits. Troponin was 0.04 initially and of significance was he had a BNP of 1140 as well as an elevated TSH at 0.711. He does have a history of hypothyroidism and is currently on supplementation with Levothyroxine of 0.05 mg daily. Chest x-ray in the [facility] per radiology interpretation single view chest revealed enlarged cardiac silhouette with pulmonary vascular congestion and pulmonary edema most likely representing changes of congestive heart failure. He then had a CT of the head without contrast and per radiology interpretation there were no acute findings. There was note of severe white matter disease but nonspecific which was considered likely chronic microvascular ischemia. He also had been seen in the clinic by Dr. Barahona on the for the shortness of breath. Given his elevated BNP, there were concerns for exacerbation of congestive heart failure which was not yet explaining his hallucinations, however given the significant elevation and shortness of breath and new diagnosis of atrial fibrillation having been started on Metoprolol and Eliquis, EKG was completed which showed no acute changes compared to previous with left ventricular hypertrophy and nonspecific ST-T wave changes. Mr. Coburn was given 2 mg of Bumex in the E. R. and now is going to be admitted to the Medical/Surgical floor for ongoing evaluation and treatment of what appears to be an acute exacerbation of congestive heart failure, although there is the possibility of infectious process which has not yet been ruled out, which could include early pneumonia. His urinalysis was without any significant findings. PAST MEDICAL HISTORY: 1. History of carotid stenosis. 2. New diagnosis of paroxysmal atrial fibrillation recently placed on beta jack and Eliquis found on an implanted loop recorder. 3. History of tension headaches. 4. History of gastroesophageal reflux disease. 5. History of prostate cancer with radical prostatectomy performed. 6. Chronic congestive heart failure with last echocardiogram showing grade 1 diastolic dysfunction with a 55% ejection fraction in January 2018. 7. Anxiety and mild depression, 8. Rheumatoid arthritis but not on chronic treatment. 9. History of rheumatic fever as a child. 10. Chronic constipation. 11. Chronic vertigo. 12. Chronic cough with chronic bronchitis. 13. Sleep apnea with probable more obstructive sleep apnea utilizing CPAP at home. PAST SURGICAL HISTORY: 1. Cardiac loop recorder implantation. 2. Radical prostatectomy for prostate cancer. 3. Left shoulder replacement. 4. Appendectomy. 5. Tonsillectomy. 6. Right hip surgery along with right shoulder surgery. HOME MEDICATIONS: 1. Eliquis 2.5 mg b.i.d. 2. Abilify 5 mg daily. 3. Clonazepam 1 mg at bedtime. 4. Tramadol 50 mg every 6 hours as needed. 5. Potassium chloride 10 mEq. 6. Pantoprazole 40 mg daily. 7. Synthroid 0.5 mg daily. 8. Linzess 290 mcg as needed. 9. Cymbalta 60 mg daily. 10. Metoprolol succinate extended release 50 mg daily. 11. Lasix 40 mg daily. ALLERGIES: OXYCODONE. FAMILY HISTORY: Positive for carcinoma of the prostate in his brother as well as heart failure. SOCIAL HISTORY: The patient is a nonsmoker, never has smoked. 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 He lives in [place], [place]. He is . He denies any alcohol or illicit drug use. REVIEW OF SYSTEMS: Negative for any fevers, chills, body aches, general malaise. HEENT: Negative for nasal congestion, ear aches, sore throat, vision changes. RESPIRATORY: Does have some worsening shortness of breath but no wheezing or cough. CARDIOVASCULAR: Negative for any chest pains, palpitations or syncopal episodes. Does have a cardiac loop recorder implantation. GASTROINTESTINAL: Negative for any nausea, vomiting or diarrhea. GENITOURINARY: Negative for any dysuria, hematuria or polyuria. NEUROLOGIC: As noted in history of present illness with visual hallucinations but no ataxia or seizure activity or focal deficits reported. PSYCHIATRIC: Reported visual hallucinations but negative for anxiety or depression. Does have some issues with maintaining a normal sleep pattern. PHYSICAL EXAMINATION: VITAL SIGNS: Temperature 97.8, pulse 65, blood pressure 105/56, respirations 20, satting 91% on 2 liters nasal cannula at rest. Admission weight 71.8 kg. GENERAL: On examination on the Medical/Surgical floor, the patient appears to be resting comfortably in no acute distress. He is alert. HEENT: Tympanic membranes are clear bilaterally. Oropharynx is pink with notable dry mucosal membranes. No lesions or rashes. NECK: Supple, non-tender. Full range of motion. CHEST: Lungs are clear to auscultation, just slightly diminished towards the bases with notable rales bilaterally. No wheezing or rhonchi. CARDIOVASCULAR: Regular rate and rhythm without appreciable murmurs, gallops, or rubs. ABDOMEN: Soft, non-tender. Positive bowel sounds. EXTREMITIES: Show to be without any edema. BACK: Exam is without any CVA tenderness or vertebral tenderness on palpation. NEUROLOGIC: He is alert and oriented times three. SKIN: Warm, pink and dry. No lesions or rashes. LABORATORY: White count 10,500, hemoglobin 12.3, hematocrit 36.6, platelet count 320,000. Differential does show a slight left shift. Coagulation studies showed normal PT and PTT. Chemistry showed normal electrolytes. BUN was slightly elevated at 24, creatinine 1.42 and what looks like a baseline creatinine of around 0.9. Blood sugar is 135, lactic acid normal at 2.2, magnesium normal, calcium normal. Liver functions showing all to be within normal limits except for a slight elevation of AST at 45. Troponin was 0.04. BNP was elevated at 1140 and TSH was elevated at 7.11 with a free T4 of 1.40. Urinalysis showed just 100 protein, otherwise within normal limits. RPR ordered through the E. R. was pending. MICROBIOLOGY: Influenza A and B by PCR showed to be negative. RADIOLOGY: Chest x-ray in the E. R., single view chest, enlarged cardiac silhouette with pulmonary vascular congestion and pulmonary edema most likely representing changes of congestive heart failure. CT of the head without contrast was without any acute findings. There was note of severe white matter disease with nonspecific likely chronic microvascular ischemia. Ultrasound of the carotids was pending. ASSESSMENT: 1. Acute delirium with hallucinations, uncertain etiology at this point, although CT findings were concerning for extensive white matter disease with chronic microvascular ischemia which could be resulting in some of his changes exacerbated by underlying exacerbation of congestive heart failure, possibly pneumonia which cannot be completely ruled out. 2. Acute on chronic congestive heart failure exacerbation as noted on chest x- ray with concerns for pulmonary edema along with significantly elevated BNP with last echocardiogram in January 2018 showing a preserved ejection fraction with an ejection fraction of 55% and a grade 1 diastolic dysfunction. 3. Recent diagnosis of paroxysmal atrial fibrillation noted on cardiac loop recorder and started on Eliquis and Metoprolol. 4. Gastroesophageal reflux disease. 5. Acute kidney injury with prerenal azotemia likely with baseline creatinine on review of chart being around 1.0 with current creatinine at admission of 1.42. 6. History of tension headaches. 7. History of prostate cancer with removal of the prostate. 8. Hypothyroidism on supplementation with elevated TSH levels. 9. Depression on Abilify. 10. Rheumatoid arthritis not on any current treatment. 11. History of rheumatic fever as a child. 12. Chronic constipation on Linzess. PLAN: The patient is going to be admitted to the Medical/Surgical floor for further treatment and evaluation. Given that he has what looks like an exacerbation of congestive heart failure, although clinically his lungs were not significantly that bad compared to his radiographic studies and current BNP. Given that it does appear he is having some mild congestive heart failure exacerbation, will go ahead and continue diuresis. He was given 2 mg of Bumex in the E. R. Will followup with additional Lasix dose this afternoon with probable scheduled dose of 40 mg every 12 hours. Given that his take out waiter is Dr. Smith, will see if we can get him to consult in the morning and review the patient's chart in regards to any other possible etiologies of his symptoms related to his cardiac history as well as management of the acute exacerbation of congestive heart failure. Will plan to repeat labs in the morning. Will go ahead and start him on some IV fluids to see if we can help correct his creatinine. Will start with some D5 half normal saline at 80 for at least the next 12 hours. Will closely monitor his I's and O's. I put him on a fluid restriction of less than 1500 mL for 24 hours. Will continue to monitor I's and O's with the Lasix and IV fluids. Recheck an x-ray in the morning as well as labs. Will anticipate his length of stay to be at least 2 to 3 days. He will be on prophylaxis for DVT with already Eliquis and continue the SCDs. I have encouraged his to bring his CPAP machine from home that we will utilize while in the hospital. Will review his home medications and update those as needed and restart as required. Given that there is an inability to completely rule out a possible underlying pneumonia process based off chest x-ray on admission and a slight left shift, and chronic bronchitis history, will go ahead and put him on azithromycin and Rocephin prophylactically at this point and utilize oxygen for any shortness of breath, but will certainly avoid albuterol if possible to exacerbate his atrial fibrillation as he is currently showing a sinus rhythm. Until he can transition to outpatient management will continue to monitor and treat as needed. #[id number] [facility]
[2018-06-15] MEDS ORDERED: NITROGLYCERIN 0.4 MG 25 EA TAB SL PRN (15:44)
[2018-06-15] MEDS ORDERED: ONDANSETRON INJ 4 MG/2 ML VIAL IV PRN (15:44)
[2018-06-15] MEDS ORDERED: SODIUM CHLORIDE 0.9% (FLUSH) 10 ML SYG IV PRN (15:44)
[2018-06-15] MEDS ORDERED: IV SET AND CAP CHANGE INJ INJ SCH (16:00)
[2018-06-15] MEDS ORDERED: DEX 5% W/NACL 0.45% 1000ML 1,000 ML IVS PRN (16:26)
[2018-06-15] MEDS: FUROSEMIDE INJ 40 MG/4 ML VIAL IV SCH (16:30)
[2018-06-15] MEDS ORDERED: SODIUM CHL 0.9% 50ML MIN-BAG+ 50 ML IVPB ONE (16:43)
[2018-06-15] MEDS ORDERED: SODIUM CHLORIDE 0.9% 250ML 250 ML ONE (16:43)
[2018-06-15] MEDS ORDERED: cefTRIAXone SODIUM 1 GM VIAL ONE (16:43)
[2018-06-15] MEDS ORDERED: AZITHROMYCIN IV 500 MG VIAL IVPB ONE (16:44)
[2018-06-15] MEDS: cefTRIAXone SODIUM 1 GM in SODIUM CHL 0.9% 50ML MIN-BAG+ 50 ML IVPB SCH (16:47)
[2018-06-15] MEDS: AZITHROMYCIN IV 500 MG in SODIUM CHLORIDE 0.9% 250ML 250 ML IVPB SCH (17:33)
--- NOTE | 2018-06-15 17:46 | US ---
EXAM DESCRIPTION: Carotid Duplex: ULTRASOUND. CLINICAL HISTORY: 87 years Male AMS change with delirium COMPARISON: Carotid duplex ultrasound 12/31/2013. TECHNIQUE: Transcutaneous scanning utilizing ball-scale and Doppler modes to evaluate the bilateral carotid systems and vertebral arteries. Percentage of diameter of stenosis or no stenosis recorded will be based upon NASCET criteria. FINDINGS: Peak systolic/end diastolic (CM-Sec) CCA Right 108/19 Left 96/0. ICA Right proximal 137/19, mid 99/14. Left proximal 76/7, Distal 75/11. Vertebral Right not seen Left 66/12. ECA (PS Only) Right 204 left 308. ICA/CCA peak systolic ratio: Right 1.4 Left 0.8 ICA/CCA end diastolic ratio: Right 1.5 Left n/a Vertebral arteries: antegrade flow. Left vertebral artery visualized only. Comments: Spectral broadening proximal ICAs bilaterally. Area stenosis left CCA bulb 40%. Diameter stenosis 30%. Area stenosis proximal right ICA 34%. Diameter stenosis 27%. Stenosis bilateral ECAs. IMPRESSION: 1. Doppler evaluation of the bilateral internal carotid systems and vertebral arteries shows no hemodynamically significant stenoses. Bilateral stenosis of the ECAs usually not clinically significant. 2. No significant amount of plaque seen in the carotid arteries bilaterally. Bilateral vertebral arteries showed antegrade-cephalad flow. Electronically signed by: Ezequiel Mclean MD 06/15/2018 5:43 PM FORMING MACHINE TENDER
[2018-06-15] MEDS: DULoxetine HCL 30 MG CAP PO SCH (20:55)
[2018-06-15] MEDS: APIXABAN 2.5 MG TAB PO SCH (20:55)
[2018-06-16] MEDS ORDERED: ALBUTEROL SULFATE 2.5 MG/3 ML VIAL NEB PRN (05:17)
[2018-06-16] MEDS: LEVALBUTEROL NEBS 1.25 MG/3 ML VIAL NEB SCH ×5 (05:41→20:40)
--- NOTE | 2018-06-16 05:42 | RAD ---
CHEST 06/16/2018 CLINICAL HISTORY: Congestive heart failure COMPARISON: Chest 06/15/2018 TECHNIQUE: AP Chest. FINDINGS: The heart is minimally enlarged. Mild aortic atherosclerosis. There is diffuse interstitial prominence secondary to pulmonary edema. There are confluent opacities in the right and left medial lower lobes. There is no pneumothorax. No large joint effusion. There is a mild dextrothoracic thoracic spine curved. Proximal right humerus adiposity appears intact. IMPRESSION: 1. Persistent congestive heart failure with florid pulmonary edema. Bibasilar consolidation persists. Electronically signed by: Shanae Amador DO 06/16/2018 5:39 AM [facility]
[2018-06-16] MEDS ORDERED: FUROSEMIDE INJ 100 MG/10 ML VIAL IV ONE (06:00)
[2018-06-16] MEDS: LEVOTHYROXINE SODIUM 0.025 MG TAB PO SCH (06:21)
[2018-06-16] MEDS: PANTOPRAZOLE SODIUM TAB 40 MG PO SCH (06:21)
[2018-06-16] MEDS ORDERED: METOPROLOL SUCCINATE XL 25 MG TAB PO SCH (09:00)
[2018-06-16] MEDS: APIXABAN 2.5 MG TAB PO SCH ×4 (09:12→21:05)
[2018-06-16] MEDS: ARIPiprazole 5 MG TAB PO SCH (09:12)
[2018-06-16] MEDS: POTASSIUM CHLORIDE 10 MEQ TAB PO SCH (09:12)
[2018-06-16] MEDS: FUROSEMIDE INJ 40 MG/4 ML VIAL IV SCH ×2 (10:31→17:14)
[2018-06-16] MEDS ORDERED: SODIUM CHL 0.9% 50ML MIN-BAG+ 50 ML IVPB ONE (17:09)
[2018-06-16] MEDS ORDERED: cefTRIAXone SODIUM 1 GM VIAL ONE (17:10)
[2018-06-16] MEDS: cefTRIAXone SODIUM 1 GM in SODIUM CHL 0.9% 50ML MIN-BAG+ 50 ML IVPB SCH (17:13)
--- NOTE | 2018-06-16 17:23 | PN ---
SUPERVISING PHYSICIAN: Rush Barahona MD DATE: 06/16/18 SUBJECTIVE: This morning I was called around 5:30. The patient was having some episodes of acute respiratory distress. He had done fine all night long, woke up suddenly and was short of breath. He responded well to treatment with some additional Lasix. His reports that he has not had anymore hallucinations since admission and has actually been able to rest. OBJECTIVE: VITAL SIGNS: Temperature 98.7, pulse 74, blood pressure 115/66, respirations 18, saturation 98% on nasal cannula at rest. I&O: Negative balance of 800 with 240 in and 1075 out. Weight is 71.8 kg. GENERAL: The patient is resting comfortably, he is alert. CHEST: Lung sounds are fairly clear throughout. No obvious rhonchi, rales, or wheezes. They are just diminished slightly towards both bases. HEART: Regular rate and rhythm. ABDOMEN: Soft, non-tender, positive bowel sounds. EXTREMITIES: Without cyanosis, clubbing, or edema. NEURO: He is alert and oriented x3 and without any reported hallucinations since admission. LABORATORY: White count went up to 16,200, hemoglobin 12.1, hematocrit 37.3. Platelet count 336,000. Differential does show a slight left shift. Chemistries shows a potassium of 3, otherwise all electrolytes within normal limits. BUN 19, creatinine down to 1.35, calcium 8.0. MICROBIOLOGY: No additional specimens. Flu was negative. RADIOLOGY: Repeat chest x-ray this morning shows persistent congestive heart failure with pulmonary edema with bibasilar consolidations persists. ASSESSMENT: 1. Acute delirium with hallucinations, probably due to underlying infectious process to include bilateral community acquired pneumonia improving with treatment. 2. Bilateral pneumonia, community acquired. 3. Leukocytosis secondary to #2. 4. Acute on chronic congestive heart failure with exacerbation as noted on chest x-ray and clinical presentation with last echocardiogram noted to be in January 2018 showing ejection fraction of 55% and a grade 1 diastolic dysfunction requiring continued aggressive diuresis with diuretics. 5. History of paroxysmal atrial fibrillation as noted on implanted cardiac loop recorder and recently started on Eliquis and Metoprolol by Dr. Smith with patient showing normal sinus rhythm currently. 6. Chronic gastroesophageal reflux disease. 7. Acute kidney injury with prerenal azotemia with levels returning to baseline. 8. History of tension headaches. 9. History of prostate cancer with removal of the prostate and hormonal therapy. 10. Hypothyroidism on supplementation with elevated TSH levels requiring further management as an outpatient. 11. Depression on Abilify. 12. Rheumatoid arthritis not on any current treatment. 13. History of rheumatic fever as a child. 14. Chronic constipation utilizing Linzess. PLAN: I was going to have the patient seen by Dr. Smith today, however, Dr. Smith was unable to see the patient in consultation as he was ill and did not come to [facility] today. We will continue with Lasix and diuresis and fluid restriction in regards to treatment of congestive heart failure. Currently, he is on Lasix 40 mg b.i.d. He is on Xopenex and albuterol with aggressive pulmonary hygiene for underlying treatment of the pneumonia as well as antibiotic coverage with azithromycin and Rocephin. His medications have been started back as appropriate except we did hold his Toprol this morning as he was acute decompensation of his congestive heart failure. Will continue with current plan at this point with anticipation of possible discharge if the patient is showing to be stable in the next 24 go 48 hours. Until then, we will continue to monitor and treat as needed. I also did talk to Jayla at [facility] and they have visited with the and patient and possibility of referral for continued rehabilitation upon discharge. #[id number] [facility]
[2018-06-16] MEDS ORDERED: AZITHROMYCIN IV 500 MG VIAL IVPB ONE (18:00)
[2018-06-16] MEDS ORDERED: SODIUM CHLORIDE 0.9% 250ML 250 ML ONE (18:00)
[2018-06-16] MEDS: AZITHROMYCIN IV 500 MG in SODIUM CHLORIDE 0.9% 250ML 250 ML IVPB SCH (18:07)
[2018-06-16] MEDS: DULoxetine HCL 30 MG CAP PO SCH ×3 (20:32→21:04)
[2018-06-17] MEDS: PANTOPRAZOLE SODIUM TAB 40 MG PO SCH (06:15)
[2018-06-17] MEDS: LEVOTHYROXINE SODIUM 0.025 MG TAB PO SCH (06:15)
--- NOTE | 2018-06-17 07:34 | RAD ---
Portable chest INDICATION: Pneumonia versus CHF COMPARISON: This IMPRESSION: Marked interval improvement. Findings suggest decreased congestive failure. There is background vascular congestion. Borderline cardiomegaly. No large effusion or pneumothorax. Reverse arthroplasty right shoulder Electronically signed by: Sanjay Vegas MD 06/17/2018 7:31 AM DIRECTOR AND PROFESSOR
[2018-06-17] MEDS: LEVALBUTEROL NEBS 1.25 MG/3 ML VIAL NEB SCH ×3 (08:30→17:57)
[2018-06-17] MEDS: APIXABAN 2.5 MG TAB PO SCH (08:52)
[2018-06-17] MEDS: ARIPiprazole 5 MG TAB PO SCH (08:52)
[2018-06-17] MEDS: FUROSEMIDE INJ 40 MG/4 ML VIAL IV SCH (08:52)
[2018-06-17] MEDS: POTASSIUM CHLORIDE 10 MEQ TAB PO SCH (08:52)
[2018-06-17] MEDS ORDERED: OSELTAMIVIR PHOSPHATE 6 MG/ML BOTTLE PO SCH (09:00)
[2018-06-17] MEDS ORDERED: METOPROLOL SUCCINATE XL 50 MG TAB PO SCH (09:00)
[2018-06-17 10:57] VITALS: TEMP 98.6; O2SAT 95
[2018-06-17 15:11] VITALS: BP 122/71
[2018-06-17] MEDS ORDERED: SODIUM CHL 0.9% 50ML MIN-BAG+ 50 ML IVPB ONE (17:05)
[2018-06-17] MEDS ORDERED: cefTRIAXone SODIUM 1 GM VIAL ONE (17:06)
--- NOTE | 2018-06-17 20:05 | DS ---
SUPERVISING PHYSICIAN: Rush Barahona M.D. ADMISSION DIAGNOSIS: 1. Acute delirium with hallucinations. 2. Acute on chronic congestive heart failure. 3. paroxysmal atrial fibrillation. 4. Gastroesophageal reflux disease. 5. Acute kidney injury. 6. Tension headaches. 7. History of prostate cancer with prostatectomy. 8. Hypothyroidism. 9. Depression. 10. Rheumatoid arthritis. 11. Chronic constipation on Linzess. DISCHARGE DIAGNOSIS: 1. Acute delirium with hallucinations. 2. Acute on chronic congestive heart failure. 3. paroxysmal atrial fibrillation. 4. Gastroesophageal reflux disease. 5. Acute kidney injury. 6. Tension headaches. 7. History of prostate cancer with prostatectomy. 8. Hypothyroidism. 9. Depression. 10. Rheumatoid arthritis. 11. Chronic constipation on Linzess. HISTORY OF PRESENT ILLNESS: Mr. Coburn is an 87 year-old male patient who was brought to the Emergency Room by his due to the fact that he was having altered mental and hallucinations. Apparently he was seeing cobwebs and had confusion. When he went to the Emergency Room his workup included labs which showed a left shift with a normal white count. H&H was stable. He had a mild elevation in his creatinine and he had an elevated BNP as well. Chest x-ray showed pulmonary vascular congestion and pulmonary edema. CT head does not show any acute findings. Therefore he was admitted to the hospital. HOSPITAL COURSE: Over that time he was placed on empiric antibiotics as well as treatment for his congestive heart failure. His altered mental status resolved, however the patient has some disuse myopathy. Therefore he was referred to [facility] for rehabilitation. This morning, the patient is alert and not confused. His breathing is better. PLAN: He is going to go to [facility] for rehabilitation. I have written orders for his discharge medications and you can see those on the discharge med. rec. list. Activity will be as per [facility] once he gets there. I have resumed some antibiotics for him that he will be taking p.o. as well. #[id number] [facility]
[2018-06-18] MEDS ORDERED: POTASSIUM CHLORIDE 10 MEQ TAB PO ONE (10:38)
== END 2018-06-17 18:05 | DRG 291 ==
LOC: ER 10:14 → MS 13:23
PROVIDERS: ADMIT Nurse Practitioner Family; ATTEND Nurse Practitioner
DX: I50.33 Acute on chronic diastolic (congestive) heart failure (principal); J18.9 Pneumonia, unspecified organism; F05 Delirium due to known physiological condition; N17.9 Acute kidney failure, unspecified; R44.1 Visual hallucinations; I48.0 Paroxysmal atrial fibrillation; K21.9 Gastro-esophageal reflux disease without esophagitis; E03.9 Hypothyroidism, unspecified; F32.9 Major depressive disorder, single episode, unspecified; M06.9 Rheumatoid arthritis, unspecified; K59.09 Other constipation; G72.89 Other specified myopathies; F41.9 Anxiety disorder, unspecified; G47.33 Obstructive sleep apnea (adult) (pediatric); Z96.612 Presence of left artificial shoulder joint; Z85.46 Personal history of malignant neoplasm of prostate; Z79.02 Long term (current) use of antithrombotics/antiplatelets; Z79.891 Long term (current) use of opiate analgesic; Z79.899 Other long term (current) drug therapy; Z95.818 Presence of other cardiac implants and grafts; Z88.5 Allergy status to narcotic agent

== ENCOUNTER → 2018-07-06 | Outpatient (CLI) | payer MEDICARE, OTHER | LOC: GMAE 17:50 | PROVIDERS: ATTEND Family Medicine | DX: C61 Malignant neoplasm of prostate (principal) ==